=== PATIENT | female | born 1995 | race African-American/Black ===

== ENCOUNTER 2017-02-10 15:35 | Inpatient (IN) | payer MEDICAID, OTHER, SELFPAY ==
[~2017-02-10 15:35] MED LIST: Oxytocin 10 UNITS/ML VIAL ONE
[2017-02-10 16:13] VITALS: BMI 25.6
[2017-02-10] MEDS ORDERED: Sodium Chloride 0.9% 1,000 ML IV SCH (16:45)
[2017-02-10 17:11] LABS: #Eosinphils 0.1 thou/uL (0.0-0.7); #Lymphocytes 1.8 thou/uL (1.20-3.40); #Monocytes 0.8 thou/uL (0.11-0.59); #Neutrophils 9.2 thou/uL (1.40-6.50); %Basophils 0.3 % (0.0-1.0); %Eosinophils 0.6 % (0.0-10.0); %Lymphocytes 15.3 % (21.0-51.0); %Monocytes 6.3 % (0.0-10.0); Hematocrit 34.2 % (36.0-47.0); Mean Platelet Volume 10.7 fL (7.4-10.4); Red Blood Cell (RBC) Count 4.62 mill/uL (4.20-5.40); White Blood Cell (WBC) Count 11.9 thou/uL (4.8-10.8)
[2017-02-10 17:35] LABS: Anisocytosis SLIGHT = 6-15 cells (100X) (0-5/hpf); Hypochromia SLIGHT = 6-15 cells (100X) (0-5/hpf); Microcytosis SLIGHT = 6-15 cells (100X) (0-5/hpf); Polychromasia SLIGHT = 2-3 cells (100X) (0-2/hpf)
[2017-02-10 17:49] LABS: Bilirubin Negative (Negative); Blood, Urine Large (Negative); Glucose, Urine (Dipstick) Negative (Negative); Ketone, Urine Negative (Negative); Nitrite Negative (Negative); Protein, Urine (Dipstick) Trace mg/dL (Neg-Trace)
[2017-02-10 17:51] LABS: Bacteria/HPF None Seen HPF (None Seen); Hyaline Casts/LPF 7-10 HYALINE CAST LPF (0-3 Hyaline); RBC/HPF GREATER THAN 50-TNTC HPF (0-3)
[2017-02-10 18:02] LABS: Oval Fat Bodies/HPF None Seen HPF (None Seen); Renal Epithelial None Seen HPF (0-3); Transitional Epithelial 0-3 HPF (0-3); Trichomonas/HPF None Seen HPF (None Seen)
--- NOTE | 2017-02-10 19:09 | ULT ---
Please see the separately dictated, concurrently performed obstetrical ultrasound for full details concerning the biophysical profile. POS: [facility]
--- NOTE | 2017-02-10 19:09 | ULT ---
THIRD TRIMESTER OBSTETRICAL ULTRASOUND BIOPHYSICAL PROFILE 02/10/17 INDICATION: No care with decreased movement. FINDINGS: There is a single live intrauterine gestation in vertex presentation. The cardiac activity is noted at 118 beats per minute. The placenta is posterior and fundal without evidence of previa. BLAKE is noted at 5.7 cm. The estimated weight is 4 lb. 2 oz, plus or minus 10 oz (1870 grams plus or minus 277 grams). The average gestational age by ultrasound based on biometrics is 32 weeks and 0 days whereas o n the clinical dates is 35 weeks and 5 days. Portions of the head appear within normal limits. The cerebellum and cisterna magna were not w ell seen. The lateral ventricles were not well seen. The four chamber heart, stomach, kidneys, bladder, spine, lips, nose and three vessel cord were with in normal limits. IMPRESSION: 1. Single live intrauterine gestation. 2. The fetus received 2 out of 2 for movement, but 0 out of 2 for tone and 0 out of 2 for breathing movements as well as 0 out of 2 for amniotic fluid levels. The biophysical pr ofile is 2 out of 8. 3. Findings were called to Dr. Rubio at 6:58 p.m. on 02/10/17. Code CR POS: [facility]
[2017-02-10 19:54] LABS: Amphetamine Not Detected (NotDetected); Methadone Not Detected (NotDetected); Methamphetamine Not Detected (NotDetected)
[2017-02-10] MEDS ORDERED: Bicitra 30 ML UDCUP PO SCH (20:00)
[2017-02-10] MEDS ORDERED: ePHEDrine/0.9% NaCl/PF SYRINGE 50 mg/10 ml ONE (20:14)
[2017-02-10] MEDS ORDERED: Ondansetron HCl/PF 4 MG/2 ML Vial ONE (20:14)
[2017-02-10] MEDS: Lactated Ringer's 1,000 ML IV SCH (20:14)
[2017-02-10] MEDS ORDERED: Oxytocin 10 UNITS/ML VIAL ONE (20:14)
[2017-02-10] MEDS ORDERED: Lidocaine 1% PF 5 ML VIAL ONE (20:44)
[2017-02-10] MEDS ORDERED: Promethazine HCl 25 MG/ML VIAL IM PRN (21:09)
[2017-02-10] MEDS ORDERED: Eucerin (Mineral Oil/Petrolatum,White) 30 gm Jar TOP PRN (21:09)
[2017-02-10] MEDS ORDERED: Promethazine HCl 25 MG SUPP PR PRN (21:09)
[2017-02-10] MEDS ORDERED: Naloxone HCl 0.4 mg/ml Vial IVP PRN ×2 (21:09)
[2017-02-10] MEDS ORDERED: Ondansetron HCl/PF 4 MG/2 ML Vial IVP PRN (21:09)
[2017-02-10] MEDS ORDERED: Naloxone HCl 0.4 mg/ml Vial IV PRN (21:09)
[2017-02-10] MEDS ORDERED: diphenhydrAMINE HCl 50 MG/ML 1 ML VIAL IVP PRN (21:09)
[2017-02-10] MEDS ORDERED: Communication Order-Pharmacy FS SCH (21:15)
[2017-02-10 21:33] LABS: Modified Allen's Test NOT DONE; Vent NO
[2017-02-10] MEDS: Ketorolac Tromethamine 30 MG/ML VIAL IVP PRN (22:40)
[2017-02-11 06:06] LABS: Hematocrit 28.2 % (36.0-47.0)
[2017-02-11] MEDS: Lactated Ringer's 1,000 ML IV SCH ×3 (07:33→21:50)
--- NOTE | 2017-02-11 08:48 | PRG ---
DATE OF SERVICE: 02/11/2017 SUBJECTIVE: The patient is doing well with adequate pain control. No heavy vaginal bleeding. Fole y catheter still in place. She is bottle feeding. OBJECTIVE: VITAL SIGNS: Temperature is 98.8, pulse 82, respiratory rate 18, blood pressure 115/55. GENERAL: Nontoxic appearing female, in no acute distress. ABDOMEN: Soft, nontender, nondistended, no rebound, no guarding. Dressing is dry. GENITOURINARY: Fundus is firm at the umbilicus and Kim catheter is draining is pink tinged urine. ASSESSMENT AND PLAN: 1. Postoperative day 01, status post repeat low-transverse section. The patient is doing well from a postoperative standpoint. The patient was made aware of the uterine window and was stro ngly counseled against short interval in the future. She was also counseled to obtain ear care for one more accurate dating and to have a repeat at 37 weeks versus 39 w eeks given the uterine window during this case. 2. Trichomonas. The patient prescribed 500 mg Flagyl p.o. x4 doses today spaced out of several luis f rs hopefully to minimize the amount of GI upset that can be associated with Flagyl. It was explaine d to the patient that her partner will need to be treated as well, but also the patient should not h ave intercourse for 6 weeks.
[2017-02-11] MEDS: metroNIDAZOLE 500 MG TAB PO SCH ×3 (09:50→14:40)
--- NOTE | 2017-02-11 14:05 | HP ---
DATE OF SERVICE: 02/10/2017 CHIEF COMPLAINT: Cramping. HISTORY OF PRESENT ILLNESS: At the time of presentation, Ms. Zayas is a 22-year-old 2, para 1 female with a history of prior delivery last year in September. She presents with complai nts of cramping and spotting since approximately 9 o'clock in the morning. She denies anything in t he vagina in the last 24 hours. Unfortunately, the patient has had very limited care durin g this that was late entry and her dating of 35 weeks 5 days is based on a 30-week ultraso und. Records are unavailable. The patient denies any fever or chills. She denies any cardiovascul ar, respiratory or GI complaints. She denies any current headache or scotomata. She reports good f etal movement and denies any leakage of fluid. She does report a green vaginal discharge for the la st 2 days that appears watery and is without odor. REVIEW OF SYSTEMS: Per HPI. PAST MEDICAL HISTORY: Negative. PAST SURGICAL HISTORY: section. OBSTETRIC HISTORY: #1 complicated by limited care, delivery by was for arrest of labor. The patient was GBS positive in that and did have her done her e at [facility]. MEDICATIONS: vitamins and iron. ALLERGIES: No known drug allergies. SOCIAL HISTORY: The patient denies tobacco, alcohol, or illicit drug use. PHYSICAL EXAMINATION: VITAL SIGNS: Blood pressure 128/67, pulse 111, respiratory rate 20, temperature 98.3. GENERAL: Nontoxic appearing female in no acute distress. OBSTETRIC: heart tracing is reactive with occasional variable deceleration. RESPIRATORY: Respirations are unlabored. ABDOMEN: Gravid and nontender. EXTREMITIES: Without cyanosis, clubbing or edema. NEUROLOGIC: Alert and oriented x3, no focal deficit. GENITOURINARY: Cervix was initially examined and found to be 2 cm dilated, high station, posterior in position with a greenish almost purulent appearing vaginal discharge noted. Specimens were obtai baron for wet prep as well as group B strep. ASSESSMENT AND PLAN: A 35-week and 5 day intrauterine by dating criteria of third t rimester ultrasound of which there are no records and prior section who presents with compl aints of cramping and spotting. While the patient's cervix remained unchanged, she did develop some bloody show. Additionally, given the paucity of care and record, decision was made to obt ain a complete ultrasound biophysical profile that showed a fetus measuring approximately 32 weeks w ith a grade III placenta, borderline oligohydramnios with an BLAKE of 5.7 and a biophysical profile th at was total of 4 out of 10. For this reason, we will proceed with delivery via section. Risks, benefits, and alternatives of reviewed with the patient including but not limited t o bleeding, infection, injury to surrounding organs and tissue. Questions were answered to her sati sfaction. We will plan to proceed with above.
[2017-02-11] MEDS: Ketorolac Tromethamine 30 MG/ML VIAL IVP PRN (14:40)
[2017-02-11] MEDS: Acetaminophen 500 MG TAB PO PRN ×2 (16:54→21:49)
--- NOTE | 2017-02-11 20:23 | PDOC.OP ---
Operative Note - Operative Note Operative Note: Procedure Note Date of Procedure: 01/10/17 Resident Surgeon: Ilir Aguilar MD Attending Surgeon: Dwight Olvera MD Procedures: 1)Repeat low transverse caesarean section 2)Scar revision Preoperative Diagnosis: 1)Suspected intrauterine with suboptimal dating 2)Previous for labor dystocia 3)Non-reassuring biophysical profile 4)Borderline oligohydramnios 5)Trichomonis vaginalis infection 6)Short interpregnacy interval 7)Limited care 8)GBS positive Postoperative Diagnosis: 1)Term appropriate for gestational age male, delivered 2)Uterine window noted intraoperatively 3)Previous for labor dystocia 4)Non-reassuring biophysical profile 5)Borderline oligohydramnios 6)Trichomonis vaginalis infection 7)Short interpregnacy interval 8)Limited care 9)GBS positive Anesthesia: spinal Indications: The patient is a 22 year old G2,P1 female at 35.5 weeks gestation by 30 wk US who initially presented for a vaginal discharge, found to have 4/10 score and borderline oligohydramnios on BPP performed due to limited care, taken back for urgent medically indicated repeat section due to concern for possible chronic asphyxia with possible acute asphyxia. Procedure in Detail: After risks, benefits, and alternatives were explained to the patient, she gave informed consent. Pre-operative antibiotics included Cefazolin 2 gram IV. The patient was taken to the operating room and spinal anesthesia was initiated. She was placed in the supine position with a left tilt and prepped and draped in usual sterile fashion. A Pfannenstiel incision was made with a scalpel and carried down to the level of the fascia which was sharply nicked. The fascial cut was extended bilaterally with Cam sissors. The inferior and superior edges of the cut fascial edges were elevated with Tyree clamps and the underlying rectus muscles were sharply and bluntly dissected free. The recti were divided digitally and retracted manually. The peritoneum was entered bluntly and retracted manually. Bladder blade was placed. Bladder flap was created with Metzenbaum scissors. A low transverse score was made with the scalpel and the uterus was entered in the midline with the scalpel. Clear fluid was seen. The hysterotomy was extended manually. The infant was noted to be vertex and was easily delivered by fundal pressure. Mouth and nares were bulb suctioned. Cord clamped and cut and grossly normal male/female was handed to waiting nurse. Cord blood was obtained. Placenta was manually extracted, found to be intact with 3 vessel cord and discarded. The uterus was externalized and the endometrium was curetted with a dry lap. The bladder blade was replaced and the uterus was closed with a running locking #1 Chromic suture (Or 0-Vicryl) followed by a running non- locking #1 Chromic imbricating suture. Following this hemostasis was noted. The abdomen was irrigated with saline and suctioned free of clots. The uterus was internalized and the hysterotomy was again noted to be hemostatic. The fascia was closed with a running non-locking 0-Vicryl suture. The subcutaneous tissue was irrigated and there were no bleeders. The skin was approximated with kirk and a pressure dressing was placed. All counts were correct. The patient tolerated the procedure well and was taken to the recovery room in stable condition. Estimated Blood Loss: 300 ml Complications: None Specimens: Cord blood sent to lab for blood type Findings: Grossly normal male/female infant with apgars of _ and _. Grossly normal placenta with 3 vessel cord discarded. Drains: Kim to gravity draining clear urine
[2017-02-11] MEDS: Ibuprofen 800 MG TAB PO SCH (21:49)
[2017-02-12] MEDS: Acetaminophen 500 MG TAB PO PRN ×2 (03:55→10:43)
[2017-02-12] MEDS: Lactated Ringer's 1,000 ML IV SCH ×2 (04:08→11:58)
[2017-02-12] MEDS: Ibuprofen 800 MG TAB PO SCH ×2 (05:48→13:44)
[2017-02-12 11:34] VITALS: BP 118/71; TEMP 97.1
== END 2017-02-12 17:55 | disposition home or self-care (01) | DRG 765 ==
LOC: L&D/OP 15:35 → L&D 20:18 → 3SW 23:48
PROVIDERS: ADMIT Obstetrics & Gynecology Obstetrics; ATTEND Obstetrics & Gynecology Obstetrics
PROC: 10D00Z1 Extraction of Products of Conception, Low, Open Approach (ICD-10-PCS; principal; 2017-02-10)
DX: O36.8930 Maternal care for other specified fetal problems, third trimester, not applicable or unspecified (principal); O41.03X0 Oligohydramnios, third trimester, not applicable or unspecified; O98.32 Other infections with a predominantly sexual mode of transmission complicating childbirth; Z3A.35 35 weeks gestation of pregnancy; Z37.0 Single live birth; A59.01 Trichomonal vulvovaginitis; O99.824 Streptococcus B carrier state complicating childbirth; O34.211 Maternal care for low transverse scar from previous cesarean delivery; N85.8 Other specified noninflammatory disorders of uterus
CPT/HCPCS: 36415; 59025; 76805; 76819; 80306; 81001; 82805; 85014; 85018; 85025; 85049; 86762; 86780; 86850; 86900; 86901; 87077; 87081; 87340; 87389; 87480; 87510; 87660; 88307; A4216; J1885; J2001; J2274; J2405; J2590

== ENCOUNTER 2017-02-21 07:44 | Emergency (ER) | payer MEDICAID, SELFPAY ==
[2017-02-21] MEDS ORDERED: Dexamethasone 4 MG TAB ONE (08:50)
[2017-02-21] MEDS ORDERED: diphenhydrAMINE HCl 25 MG CAP ONE (08:50)
== END 2017-02-21 10:06 | disposition home or self-care (01) ==
LOC: ERS 07:44
DX: O9A.23 Injury, poisoning and certain other consequences of external causes complicating the puerperium (principal); L29.9 Pruritus, unspecified; T50.2X5A Adverse effect of carbonic-anhydrase inhibitors, benzothiadiazides and other diuretics, initial encounter
CPT/HCPCS: 99283; J8540

== ENCOUNTER 2017-02-23 17:45 | Emergency (ER) | payer SELFPAY ==
[2017-02-23] MEDS ORDERED: Ibuprofen 200 MG TAB ONE (18:15)
[2017-02-23 18:26] LABS: #Basophils 0.1 thou/uL (0.0-0.2); #Eosinphils 0.9 thou/uL (0.0-0.7); #Lymphocytes 1.8 thou/uL (1.20-3.40); #Monocytes 0.7 thou/uL (0.11-0.59); #Neutrophils 15.5 thou/uL (1.40-6.50); %Basophils 0.3 % (0.0-1.0); %Eosinophils 4.7 % (0.0-10.0); %Lymphocytes 9.7 % (21.0-51.0); %Monocytes 3.8 % (0.0-10.0); Hematocrit 35.8 % (36.0-47.0); Mean Platelet Volume 8.6 fL (7.4-10.4); Red Blood Cell (RBC) Count 4.81 mill/uL (4.20-5.40)
[2017-02-23 18:49] LABS: Anion Gap 14 mmol/L (10-20); BUN (Urea Nitrogen) 9 mg/dL (7.0-18.7); Calc. Creatinine Clearance 0 mL/min (70-130); Calcium 9.2 mg/dL (7.8-10.44); Carbon Dioxide 22 mmol/L (22-29); Chloride 104 mmol/L (98-107); Estimated GFR-MDRD Greater than 90
[2017-02-23 18:52] LABS: Bilirubin Negative (Negative); Blood, Urine Negative (Negative); Glucose, Urine (Dipstick) Negative (Negative); Ketone, Urine Negative (Negative); Nitrite Negative (Negative); Protein, Urine (Dipstick) Negative (Neg-Trace)
[2017-02-23 18:54] LABS: Bacteria/HPF None Seen HPF (None Seen); Hyaline Casts/LPF 0-3 HYALINE CAST LPF (0-3 Hyaline); RBC/HPF 0-3 HPF (0-3); Squamous Epithelial 0-3 HPF (0-3)
[2017-02-23] MEDS ORDERED: Acetaminophen 500 MG TAB ONE (18:54)
== END 2017-02-23 19:00 | disposition home or self-care (01) ==
LOC: ERS 17:45
DX: O99.73 Diseases of the skin and subcutaneous tissue complicating the puerperium (principal); L03.311 Cellulitis of abdominal wall
CPT/HCPCS: 36415; 80048; 81003; 81015; 81025; 85025; 99283

== ENCOUNTER 2018-02-10 15:04 | Emergency (ER) | payer MEDICAID, SELFPAY ==
[2018-02-10 15:44] LABS: Bilirubin Negative (Negative); Blood, Urine Negative (Negative); Clarity CLOUDY (Clear); Glucose, Urine (Dipstick) Negative (Negative); Leukocyte Large (Negative); Nitrite Negative (Negative); Protein, Urine (Dipstick) Negative (Neg-Trace); Specific Gravity, Urine 1.025 (1.002-1.036)
[2018-02-10 15:47] LABS: Bacteria/HPF None Seen HPF (None Seen); Pathc Cast-AUWi Flag 1.01 (0-2.49)
[2018-02-10] MEDS ORDERED: Lidocaine Viscous Sol 2% 15 ml UD Cup ONE (15:54)
[2018-02-10] MEDS ORDERED: Mag-Al 1200 mg/1200 mg/30 ML UDCUP ONE (15:54)
[2018-02-10] MEDS ORDERED: Dicyclomine 20 MG TAB ONE (15:54)
[2018-02-10 15:56] LABS: Hyaline Casts/LPF 0-3 HYALINE CAST LPF (0-3 Hyaline)
[2018-02-10 15:57] LABS: Trichomonas/HPF 1+ HPF (None Seen)
[2018-02-10 16:05] LABS: Pregnancy Test - Urine (BHCG) Negative (Negative); Pregu Control Background? CLEAR/WHITE (CLR/WHITE); Pregu Control Bar Appear? YES (CONTROL BAR); Specific Gravity 1.025 (1.002-1.036)
[2018-02-10 16:47] LABS: Band 3 % (5-11); Eosinophils 2 % (0-10); Hemoglobin 14.6 g/dL (12.0-16.0); Lymphocytes 20 % (21-51); MDiff Complete? YES; Mean Corpuscular HGB CONC 31.2 g/dL (32.0-36.0); Mean Corpuscular Hemoglobin 27.1 pg (27.0-31.0); Mean Corpuscular Volume 86.6 fL (78.0-98.0); Mean Platelet Volume 8.4 fL (7.4-10.4); Monocytes 5 % (0-10); Neutrophil 67 % (42-75); PLT Morphology Comment Appears Adequate; Platelet Clumps SLIGHT; Platelet Count 281 thou/uL (130-400); RBC Distribution Width 12.8 % (11.5-14.5); RBC Morphology Normal; Reactive Lymphocytes 2 % (0-10); Red Blood Cell (RBC) Count 5.38 mill/uL (4.20-5.40); White Blood Cell (WBC) Count 9.4 thou/uL (4.8-10.8)
[2018-02-10 16:50] LABS: ALT (SGPT) 18 U/L (8-55); AST (SGOT) 15 U/L (5-34); Albumin 4.7 g/dL (3.5-5.0); Alkaline Phosphatase 83 U/L (40-150); Anion Gap 12 mmol/L (10-20); BUN (Urea Nitrogen) 9 mg/dL (7.0-18.7); Bilirubin, Total 0.5 mg/dL (0.2-1.2); Calc. Creatinine Clearance 0 mL/min (70-130); Calcium 9.6 mg/dL (7.8-10.44); Carbon Dioxide 24 mmol/L (22-29); Chloride 105 mmol/L (98-107); Estimated GFR-MDRD Greater than 90; Globulin 3.4 g/dL (2.4-3.5); Glucose 86 mg/dL (70-105); Lipase 15 U/L (8-78); Potassium 3.7 mmol/L (3.5-5.1); Protein, Total 8.1 g/dL (6.0-8.3); Sodium 137 mmol/L (136-145)
== END 2018-02-10 17:08 | disposition home or self-care (01) ==
LOC: ERS 15:04
DX: K29.70 Gastritis, unspecified, without bleeding (principal); N76.0 Acute vaginitis; B96.89 Other specified bacterial agents as the cause of diseases classified elsewhere
CPT/HCPCS: 36415; 80053; 81003; 81015; 81025; 83690; 85025; 99284

== ENCOUNTER 2018-03-01 18:40 | Emergency (ER) | payer MEDICAID, SELFPAY ==
[2018-03-01 20:19] LABS: Bilirubin Negative (Negative); Blood, Urine Trace (Negative); Clarity CLOUDY (Clear); Glucose, Urine (Dipstick) Negative (Negative); Leukocyte Moderate (Negative); Nitrite Negative (Negative); Protein, Urine (Dipstick) 100 mg/dL (Neg-Trace); Specific Gravity, Urine 1.023 (1.002-1.036)
[2018-03-01 20:21] LABS: Bacteria/HPF 2+ HPF (None Seen); RBC/HPF 0-3 HPF (0-3); Squamous Epithelial None Seen HPF (0-3)
[2018-03-01 20:23] LABS: Hyaline Casts/LPF 0-3 HYALINE CAST LPF (0-3 Hyaline); Pregnancy Test - Urine (BHCG) Negative (Negative); Pregu Control Background? CLEAR/WHITE (CLR/WHITE); Pregu Control Bar Appear? YES (CONTROL BAR); Specific Gravity 1.023 (1.002-1.036)
[2018-03-01] MEDS ORDERED: Ketorolac Tromethamine 30 MG/ML VIAL ONE (20:29)
== END 2018-03-01 20:55 | disposition home or self-care (01) ==
LOC: ERS 18:40
DX: N39.0 Urinary tract infection, site not specified (principal); M54.5 Low back pain
CPT/HCPCS: 81003; 81015; 81025; 87077; 87086; 87186; 96372; J1885

== ENCOUNTER 2018-03-14 02:23 | Emergency (ER) | payer MEDICAID ==
[2018-03-14 02:49] LABS: Pregnancy Test - Urine (BHCG) Negative (Negative); Pregu Control Background? CLEAR/WHITE (CLR/WHITE); Pregu Control Bar Appear? YES (CONTROL BAR)
[2018-03-14 02:50] LABS: Bilirubin Negative (Negative); Blood, Urine Negative (Negative); Clarity CLOUDY (Clear); Glucose, Urine (Dipstick) Negative (Negative); Leukocyte Small (Negative); Nitrite Negative (Negative); Protein, Urine (Dipstick) Negative (Neg-Trace); Specific Gravity 1.018 (1.002-1.036); Specific Gravity, Urine 1.018 (1.002-1.036); pH, Urine 7.5 (5.0-9.0)
[2018-03-14 02:52] LABS: Bacteria/HPF 1+ HPF (None Seen); Hyaline Casts/LPF 0-3 HYALINE CAST LPF (0-3 Hyaline); Pathc Cast-AUWi Flag 0.14 (0-2.49); RBC/HPF 0-3 HPF (0-3)
[2018-03-14] MEDS ORDERED: Azithromycin 250 MG TAB ONE (03:13)
[2018-03-14] MEDS ORDERED: cefTRIAXone\\ROCEPHIN 250 MG VIAL ONE (03:13)
[2018-03-14] MEDS ORDERED: Lidocaine 1% PF 5 ML VIAL ONE (03:13)
[2018-03-15 09:00] LABS: Chlamydia by PCR Not Detected (NotDetected); GC by PCR Not Detected (NotDetected)
== END 2018-03-14 03:43 | disposition home or self-care (01) ==
LOC: ERS 02:23
DX: N76.0 Acute vaginitis (principal)
CPT/HCPCS: 81003; 81015; 81025; 87480; 87491; 87510; 87591; 87660; 96372; J0696; J2001

== ENCOUNTER 2018-04-25 14:03 | Emergency (ER) | payer MEDICAID | END 2018-04-25 17:06 | disposition left against medical advice (07) | LOC: ERS 14:03 | DX: Z53.21 Procedure and treatment not carried out due to patient leaving prior to being seen by health care provider (principal) ==

== ENCOUNTER 2018-04-27 15:56 | Emergency (ER) | payer MEDICAID ==
[2018-04-27] MEDS ORDERED: cefTRIAXone\\ROCEPHIN 1 GM VIAL ONE (16:19)
[2018-04-27] MEDS ORDERED: Azithromycin 250 MG TAB ONE (16:19)
[2018-04-27] MEDS ORDERED: Lidocaine 1% PF 5 ML VIAL ONE (16:20)
[2018-04-27] MEDS ORDERED: Lidocaine 1% (PF) 30 ML VIAL ONE (16:21)
[2018-04-27 16:22] LABS: Bilirubin Negative (Negative); Blood, Urine Negative (Negative); Clarity CLEAR (Clear); Glucose, Urine (Dipstick) Negative (Negative); Leukocyte Negative (Negative); Nitrite Negative (Negative); Protein, Urine (Dipstick) Negative (Neg-Trace); Specific Gravity, Urine 1.021 (1.002-1.036); Urobilinogen 0.2 mg/dL (0.2-1.0)
== END 2018-04-27 17:23 | disposition home or self-care (01) ==
LOC: ERS 15:56
DX: N89.8 Other specified noninflammatory disorders of vagina (principal)
CPT/HCPCS: 81003; 96372; J0696; J2001

== ENCOUNTER 2018-05-18 01:48 | Emergency (ER) | payer MEDICAID, SELFPAY ==
[2018-05-18 02:38] LABS: Bilirubin Negative (Negative); Blood, Urine Large (Negative); Clarity CLEAR (Clear); Glucose, Urine (Dipstick) Negative (Negative); Leukocyte Negative (Negative); Nitrite Negative (Negative); Pregnancy Test - Urine (BHCG) Negative (Negative); Pregu Control Background? CLEAR/WHITE (CLR/WHITE); Pregu Control Bar Appear? YES (CONTROL BAR); Protein, Urine (Dipstick) Negative (Neg-Trace); Specific Gravity 1.029 (1.002-1.036); Specific Gravity, Urine 1.029 (1.002-1.036)
[2018-05-18 02:41] LABS: Bacteria/HPF None Seen HPF (None Seen); Hyaline Casts/LPF 0-3 HYALINE CAST LPF (0-3 Hyaline); Pathc Cast-AUWi Flag 0.43 (0-2.49); Squamous Epithelial 0-3 HPF (0-3); WBC/HPF 0-3 HPF (0-3)
== END 2018-05-18 03:12 | disposition home or self-care (01) ==
LOC: ERS 01:48
DX: T83.84XA Pain due to genitourinary prosthetic devices, implants and grafts, initial encounter (principal); R10.9 Unspecified abdominal pain
CPT/HCPCS: 81003; 81015; 81025; 99284

== ENCOUNTER 2018-05-23 14:37 | Outpatient (CLI) | payer MEDICAID ==
--- NOTE | 2018-05-23 16:56 | ULT ---
TRANSABDOMINAL PELVIC ULTRASOUND WITH COLÓN SCALE AND COLOR FLOW AND SPECTRAL DOPPLER: Date: 05/23/18 HISTORY: Lost IUD strings, check placement. FINDINGS: The uterus measures 10.4 x 3.7 x 5.3 cm. No uterine mass is seen. There is an IUD in the endometrial cavity. The right ovary measures 4.1 x 3.4 x 2.3 cm. The left ovary measures 2.8 x 2.6 x 1.7 cm. Flow is demo nstrated to both ovaries. There is a 2.4 cm cyst in the right ovary. No free fluid is seen in the cul -de-sac. IMPRESSION: IUD in place. POS: OFF
== END 2018-05-23 14:38 | disposition home or self-care (01) ==
LOC: BICULT 14:37
PROVIDERS: ATTEND Family Medicine
DX: Z30.431 Encounter for routine checking of intrauterine contraceptive device (principal); Z30.09 Encounter for other general counseling and advice on contraception
CPT/HCPCS: 76856

== ENCOUNTER 2018-06-11 20:27 | Emergency (ER) | payer MEDICAID, SELFPAY ==
[2018-06-11 20:48] LABS: Bilirubin Negative (Negative); Blood, Urine Moderate (Negative); Clarity CLOUDY (Clear); Glucose, Urine (Dipstick) Negative (Negative); Leukocyte Moderate (Negative); Nitrite Negative (Negative); Pregnancy Test - Urine (BHCG) Negative (Negative); Pregu Control Background? CLEAR/WHITE (CLR/WHITE); Pregu Control Bar Appear? YES (CONTROL BAR); Protein, Urine (Dipstick) 100 mg/dL (Neg-Trace); Specific Gravity 1.021 (1.002-1.036); Specific Gravity, Urine 1.021 (1.002-1.036); Urobilinogen 0.2 mg/dL (0.2-1.0)
[2018-06-11 20:49] LABS: Bacteria/HPF Rare-Few HPF (None Seen); Hyaline Casts/LPF 7-10 HYALINE CAST LPF (0-3 Hyaline); Pathc Cast-AUWi Flag 0.29 (0-2.49); RBC/HPF 21-50 HPF (0-3); Squamous Epithelial 0-3 HPF (0-3)
== END 2018-06-11 21:22 | disposition home or self-care (01) ==
LOC: ERS 20:27
DX: N30.91 Cystitis, unspecified with hematuria (principal)
CPT/HCPCS: 81003; 81015; 81025; 87077; 87086; 87186; 99283

== ENCOUNTER 2019-03-11 23:42 | Emergency (ER) | payer SELFPAY ==
[2019-03-12] MEDS ORDERED: diphenhydrAMINE 25 MG CAP ONE (00:01)
[2019-03-12] MEDS ORDERED: Ibuprofen 200 MG TAB ONE (00:01)
[2019-03-12] MEDS ORDERED: Albuterol Sulfate 2.5 mg/3 ml Neb ONE (01:16)
[2019-03-12] MEDS ORDERED: Ondansetron ODT 4 MG TAB ONE (01:23)
[2019-03-12] MEDS ORDERED: Pseudoephedrine HCl 30 MG TAB PO SCH (01:30)
[2019-03-12] MEDS ORDERED: Ketorolac Tromethamine 30 MG/ML VIAL ONE (02:26)
[2019-03-12] MEDS ORDERED: Meclizine HCl 25 MG TAB ONE (02:26)
[2019-03-12 02:29] LABS: #Basophils 0.1 thou/uL (0.0-0.2); #Eosinphils 0.6 thou/uL (0.0-0.7); #Lymphocytes 2.8 thou/uL (1.20-3.40); #Monocytes 0.8 thou/uL (0.11-0.59); #Neutrophils 7.8 thou/uL (1.40-6.50); %Basophils 0.7 % (0.0-1.0); %Eosinophils 4.8 % (0.0-10.0); %Lymphocytes 22.8 % (21.0-51.0); %Monocytes 6.6 % (0.0-10.0); %Neutrophils 65.1 % (42.0-75.0); Hemoglobin 12.3 g/dL (12.0-16.0); Mean Corpuscular HGB CONC 33.2 g/dL (32.0-36.0); Mean Corpuscular Hemoglobin 27.4 pg (27.0-31.0); Mean Corpuscular Volume 82.7 fL (78.0-98.0); Mean Platelet Volume 7.3 fL (7.4-10.4); Platelet Count 395 thou/uL (130-400); RBC Distribution Width 12.3 % (11.5-14.5); Red Blood Cell (RBC) Count 4.47 mill/uL (4.20-5.40)
[2019-03-12] MEDS ORDERED: guaiFENesin/Codeine Phosphate 200 mg/20 mg 10 ml UD Cup PO SCH (02:30)
[2019-03-12] MEDS ORDERED: methylPREDNISolone Sod Succ/PF 125 MG/2 ML VIAL ONE (02:48)
[2019-03-12 02:50] LABS: ALT (SGPT) 17 U/L (8-55); AST (SGOT) 18 U/L (5-34); Albumin 4.3 g/dL (3.5-5.0); Alkaline Phosphatase 86 U/L (40-110); Anion Gap 16 mmol/L (10-20); BUN (Urea Nitrogen) 10 mg/dL (7.0-18.7); Bilirubin, Total 0.3 mg/dL (0.2-1.2); Calc. Creatinine Clearance 0 mL/min (70-130); Calcium 9.5 mg/dL (7.8-10.44); Carbon Dioxide 24 mmol/L (22-29); Chloride 102 mmol/L (98-107); Estimated GFR-MDRD Greater than 90; Globulin 2.9 g/dL (2.4-3.5); Glucose 92 mg/dL (70-105); Potassium 3.5 mmol/L (3.5-5.1); Protein, Total 7.2 g/dL (6.0-8.3); Sodium 138 mmol/L (136-145)
[2019-03-12 03:11] LABS: BHCG - Serum Negative (NEGATIVE); Pregs Control Background? CLEAR/WHITE (CLR/WHITE); Pregs Control Bar Appear? YES (CONTROL BAR)
[2019-03-12] MEDS ORDERED: cefTRIAXone\\ROCEPHIN 1 GM VIAL ONE (03:56)
--- NOTE | 2019-03-12 09:33 | CT ---
PRELIMINARY REPORT/[facility]/EMERGENCY AFTER HOURS PROCEDURE: PROCEDURE INFORMATION: Exam: CT Angiography Chest With Contrast Exam date and time: 03/12/2019 3:21 AM Clinical history: 24 years old, female; Patient HX: Er 8. 24 y/o F presents to ED C/O cough. PT repor ts that she began experiencing her cough over a week ago. Elevated d-dimer TECHNIQUE: Imaging protocol: Computed tomographic angiography of the chest with intravenous contrast. 3D renderi ng: MIP reconstructed images were created and reviewed. COMPARISON: No relevant prior studies available. FINDINGS: Pulmonary arteries: The ascending aorta at the level of the right pulmonary artery measures 2 cm. The main pulmonary artery measures 1.6 cm. No evidence of acute pulmonary embolism up to the subsegme ntal level. Aorta: Unremarkable. No aortic aneurysm. No aortic dissection. Lungs: Patchy ground glass opacities in the right upper lobe and left lower lobe likely represent inf ection. Pleural space: Unremarkable. No pneumothorax. No pleural effusion. Heart: Unremarkable. No cardiomegaly. No pericardial effusion. Liver: A cyst measuring 1.2 cm is seen in the right lobe of the liver. Hypodensity measuring 4 mm is seen in the right lobe of the liver. Lymph nodes: Unremarkable. No enlarged lymph nodes. Bones/joints: Mild levoscoliosis of the thoracic spine is seen. Soft tissues: Unremarkable. IMPRESSION: 1. Patchy ground glass opacities in the right upper lobe and left lower lobe likely represent infecti on. 2. Cyst in the right lobe of the liver. Thank you for allowing us to participate in the care of your patient. Dictated and Authenticated by: Juliet Patiño MD 03/12/2019 4:47 AM Central Time ([place] & [place]) FINAL REPORT CT PULMONARY ANGIOGRAM WITH IV CONTRAST AND 3D POSTPROCESSING: IMPRESSION: I agree with the preliminary report given by Ab. POS: [facility]
--- NOTE | 2019-03-14 16:16 | RAD ---
PORTABLE CHEST ONE VIEW: 03/12/2019 12:07 a.m. HISTORY: Cough. FINDINGS: The heart size is normal. The lungs are well expanded with mild patchy infiltrates in the left lower lung. No pneumothoraces or large effusions are seen. These infiltrates are better visualized on the C T scan from the same day. POS: [facility]
== END 2019-03-12 04:32 | disposition home or self-care (01) ==
LOC: ERS 23:42
DX: J18.9 Pneumonia, unspecified organism (principal)
CPT/HCPCS: 36415; 71045; 71275; 80053; 83880; 84484; 84703; 85025; 85379; 93005; 94640; 96372; 96374; J0696; J1885; J2930; J7611; J8597; Q0162; Q0163

== ENCOUNTER 2020-07-12 08:57 | Emergency (ER) | payer MEDICAID, SELFPAY ==
--- NOTE | 2020-07-12 09:18 | RAD ---
EXAM: 3 views of the left ankle HISTORY: Ankle pain after rolling ankle COMPARISON: None FINDINGS: 3 views of the left ankle shows no evidence of acute fracture or dislocation. Moderate late ral soft tissue swelling is seen. No degenerative changes are present. IMPRESSION: No evidence of acute osseous abnormality.
== END 2020-07-12 11:05 | disposition home or self-care (01) ==
LOC: ERS 08:57
DX: S93.402A Sprain of unspecified ligament of left ankle, initial encounter (principal); W10.8XXA Fall (on) (from) other stairs and steps, initial encounter